=== PATIENT | female | born 2005 | race Caucasian/White ===

== ENCOUNTER 2023-03-08 15:43 | Outpatient (CLI) | payer BC, SELFPAY | END 2023-03-08 15:44 | disposition home or self-care (01) | PROVIDERS: PCP Family Medicine; Visit Provider Family Medicine | DX: Z00.00 Encounter for general adult medical examination without abnormal findings (principal); I10 Essential (primary) hypertension; R53.83 Other fatigue; R03.0 Elevated blood-pressure reading, without diagnosis of hypertension; Z13.6 Encounter for screening for cardiovascular disorders | CPT/HCPCS: 80053; 80061; 84443; 87086; 87186 ==

== ENCOUNTER 2023-03-26 17:25 | Emergency (ER) | payer BC, SELFPAY ==
[2023-03-26] VITALS (7 sets, daily range): BP systolic 110–131; BP diastolic 72–80; PULSE 67–93; RESP 18–20; TEMP 37; O2SAT 97–99; BMI 25.8
--- NOTE | 2023-03-26 18:24 | ED.GENADULT ---
HPI - General Adult General Date Seen: 03/26/23 Chief complaint: Chest Pain Stated complaint: Heart palp. Time Seen by Provider: 03/26/23 18:08 Source: patient and family Mode of arrival: ambulatory Limitations: no limitations History of Present Illness HPI narrative: Patient is a 17-year-old here with dad for evaluation of a number of symptoms which have been present for the past month. She says she has been getting palpitations where she feels like her heart is racing. She says sometimes she checks it an it is going fast and sometimes she checks it and it is not going fast. The fastest she has felt her pulse is about 140. Sometimes it feels irregular and other times it feels regular. She has also experienced shortness of breath, dizziness, headaches, fatigue. She saw primary care a couple of weeks ago and had labs which were normal including a CBC, metabolic panel, TSH. Her blood pressure has been borderline elevated at times in the 130s. Her dad is concerned about this as his blood pressure has always been in the low 100s. He feels that all of this started around the time she had her IUD removed and wonders if this is related. He also is concerned that it might be related to her small intestinal bacterial overgrowth. This has apparently been treated by and mining manager with some supplements and antibiotics. She is not currently taking any supplements however. She does tell me that she previously has been have the energy drink user although she has tapered back. She also drinks quite a bit of caffeine. She does notice that her symptoms are worse when she ingests a lot of energy drinks or caffeine, but they do not go completely away when she discontinues energy drinks. She is physically active, her dad describes her as a weightlifter. She was taking creatine but she has discontinued that. She continues to all of her same activities although she says she gets more fatigued. She does not smoke or drink. Related Data Home Medications Medication Instructions Recorded Confirmed creatine PO 03/08/23 glutamine 500 mg capsule 500 mg PO QDAY 03/08/23 03/08/23 (L-Glutamine) lactobacillus combination no.4 3 3,000 mmu cells PO QDAY 03/08/23 03/08/23 billion cell capsule (Probiotic) Allergies Allergy/AdvReac Type Severity Reaction Status Date / Time No Known Drug Allergies Allergy Verified 03/08/23 15:16 Review of Systems Status of ROS: Reports: 10 or more systems reviewed and unremarkable except as noted in History and below [facility] Medical History Anxiety, generalized ?F41.1 - Generalized anxiety disorder (ICD-10) Narrow nostril Hx of eating disorder ?Z86.59 - Personal history of other mental and behavioral disorders (ICD-10) History of depression ?Z86.59 - Personal history of other mental and behavioral disorders (ICD-10) Surgical History Labial hypertrophy (2019) ?N90.60 - Unspecified hypertrophy of vulva (ICD-10) Family History Father Bipolar disorder Mother Breast cancer, Onset Age: 50 Paternal Grandfather Prostate cancer Paternal Grandmother Stroke, Onset Age: 90 Social History Narrative: Single, 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[employer], no kids Nonsmoker Rare alcohol use no drug use Exercise 6 7 days a week weightlifting/yoga/cardio Smoking Status: Never smoker Do you use any of these nicotine containing products: None Second hand tobacco smoke exposure: No How often do you have a drink containing alcohol: never How often do you have six or more drinks on one occasion: Never AUDIT-C Alcohol total score: 0 Non-prescribed substance use: denies use Little interest or pleasure in doing things: not at all Feeling down, depressed, or hopeless: not at all service: No Exam Narrative: Exam Narrative: Vital signs as noted above. In general, an alert, well-appearing patient. Head: Normocephalic, atraumatic. Eyes: Pupils are equal reactive. Extraocular movements are full. Conjunctivae are normal. ENT: Mucous membranes are moist. Throat is normal. Neck: Supple without lymphadenopathy. Heart: Regular rate and rhythm. No murmur or rub. Lungs: Clear bilaterally. No increased work of breathing, crackles or wheezes. Abdomen: Soft and nontender. No organomegaly. Extremities: Well perfused. Trace edema in bilateral shins. No calf tenderness. Pulses intact. Neurologic: Patient is alert and oriented to person and place. Speech is fluent. Face is symmetric. Moves all extremities equally. Affect: Normal. Skin: Warm and dry. Well perfused. Const: Vital Signs, click to edit/add: Vital Signs - 24 hr 03/26/23 17:57 03/26/23 18:23 03/26/23 20:00 Temperature 98.6 F Pulse Rate 72 Pulse Rate [Pulse Oximeter] 93 Respiratory Rate 20 18 Blood Pressure 115/74 Blood Pressure [Ri ght Upper Arm] 131/80 Pulse Oximetry 99 99 98 Oxygen Delivery Me thod Room Air 03/26/23 20:22 03/26/23 20:30 03/26/23 20:31 Temperature Pulse Rate 78 67 69 Pulse Rate [Pulse Oximeter] Respiratory Rate Blood Pressure 110/72 Blood Pressure [Ri ght Upper Arm] Pulse Oximetry 97 98 99 Oxygen Delivery Me thod 03/26/23 20:44 Temperature 98.6 F Pulse Rate Pulse Rate [Pulse Oximeter] 93 Respiratory Rate 18 Blood Pressure Blood Pressure [Ri ght Upper Arm] 131/80 Pulse Oximetry Oxygen Delivery Me thod Course Course Hospital Course: Plan at this time is to do an EKG and metabolic panel. TSH was checked a couple of weeks ago and was normal. CBC was normal, and in the absence of any bleeding I think this is unlikely to changed. Discussed with dad that workup here is somewhat limited. There are other things that could be considered as an outpatient including Holter monitor or echo, but I cannot accomplish knees out of the emergency department. I do not see anything here in terms of red flags to suggest that there is an acute emergent problem. She continues to have good exercise tolerance without any exercise related syncope or chest pain. Blood pressure here is 130/80, discussed with dad that I certainly think that is worth following but not something that I would recommend starting on an antihypertensive out of the emergency department. EKG shows a normal sinus rhythm, she does have a rightward axis and voltages are a bit large of unknown significance. Metabolic panel is normal. I have recommended that they pursue follow-up with an echo and Holter monitor. I think this will answer their concerns as to whether not any of this is related to anything more significant than anxiety. She has an appointment with Dr. Isa hines in a couple of weeks and this can be arranged as an outpatient. For acute worsening, return to the emergency department. They are comfortable with this plan. Vital Signs Vital signs: Initial Vital Signs Temperature 98.6 F 03/26/23 17:57 Temperature Source Temporal Artery Scan 03/26/23 17:57 Pulse Rate 93 03/26/23 17:57 Pulse Rhythm Regular 03/26/23 17:57 Respiratory Rate 20 03/26/23 17:57 Blood Pressure 131/80 03/26/23 17:57 Blood Pressure Mean 97 03/26/23 17:57 Blood Pressure Position Sitting 03/26/23 17:57 Pulse Oximetry 99 03/26/23 17:57 Oxygen Delivery Method Room Air 03/26/23 17:57 Vital Signs Temperature 98.6 F 03/26/23 17:57 Pulse Rate 93 03/26/23 17:57 Respiratory Rate 20 03/26/23 17:57 Blood Pressure 131/80 03/26/23 17:57 Pulse Oximetry 99 03/26/23 17:57 Oxygen Delivery Method Room Air 03/26/23 17:57 Temperature 98.6 F 03/26/23 20:44 Pulse Rate 93 03/26/23 20:44 Respiratory Rate 18 03/26/23 20:44 Blood Pressure 131/80 03/26/23 20:44 Pulse Oximetry 99 03/26/23 20:31 Oxygen Delivery Method Room Air 03/26/23 17:57 Medical Decision Making Lab Data Labs: Lab Results 03/26/23 Range/Units 18:50 Sodium 141 (135-149) mmol/L Potassium 4.0 (3.6-5.1) mmol/L Chloride 104 (96-114) mmol/L Carbon Dioxide 29 (20-32) mmol/L BUN 14 (5-24) mg/dL Creatinine 0.8 (0.6-1.2) mg/dL Estimated Creat Clear 114.10 Estimated GFR 109 ml/min Glucose 96 (60-115) mg/dL Calcium 9.3 (8.7-10.8) mg/dL Discharge Plan Discharge Clinical Impression: Palpitations Patient Disposition: Home w/ Parent or Adult Condition: Stable Instructions: Heart Palpitations (ED) Additional Instructions: Follow-up with primary care in a couple of weeks as planned. My recommendation would be for Holter monitor and cardiac echo to evaluate for any structural abnormalities or periods of arrhythmia. I would recommend checking blood pressure once a day, recording those numbers and then bring this to your appointment so that you can discuss with primary care. Return at any time for acute worsening or new changes. Prescriptions: No Action Probiotic 3 billion cell capsule 3,000 mmu cells PO QDAY Rx Instructions: administer with a meal L-Glutamine 500 mg capsule 500 mg PO QDAY creatine PO Follow Up/Referrals: Angelina Moss MD [Primary Care Provider] - Stand Alone Forms: [employer] Info Instructions
[2023-03-26 19:08] LABS: Chloride* 104 mmol/L (96-114); Sodium* 141 mmol/L (135-149)
[2023-03-26 19:11] LABS: Creatinine* 0.8 mg/dL (0.6-1.2); Estimated Glomerular Filt Rate 109 ml/min
[2023-03-26 19:12] LABS: Blood Urea Nitrogen* 14 mg/dL (5-24); Calcium* 9.3 mg/dL (8.7-10.8); Carbon Dioxide* 29 mmol/L (20-32); Glucose* 96 mg/dL (60-115)
--- NOTE | 2023-03-26 20:27 | ED.NURSE ---
Report given to MOY Luque.
== END 2023-03-26 20:45 | disposition home or self-care (01) ==
PROVIDERS: Emergency Provider Emergency Medicine; PCP Family Medicine
DX: R00.2 Palpitations (principal)
CPT/HCPCS: 36415; 80048; 93005; 94761; 99284

== ENCOUNTER 2024-02-17 10:01 | Outpatient (CLI) | payer BC, SELFPAY ==
--- NOTE | 2024-02-17 10:15 | CRLHL7_ITS ---
For Patients: As a result of the Century Cures Act, medical imaging exams and procedure reports are released immediately into your electronic medical record. You may view this report before your referring provider. If you have questions, please contact your health care provider. INDICATION: Neck pain. Cervical radiculopathy. TECHNIQUE: Noncontrast sagittal T1, T2, STIR and axial GRE sequences are provided. No comparisons. FINDINGS: The overall stature, alignment and intrinsic marrow signal of the cervical spine is within normal limits. Cervical cord is normal. No suspicious disc bulges or protrusions. No suspicious central canal or foraminal narrowing. IMPRESSION: Unremarkable MRI of the cervical spine. Dictated by Deon Rahman MD @ 02/17/2024 12:21:16 PM (Electronically Signed)
== END 2024-02-17 10:02 | disposition home or self-care (01) ==
PROVIDERS: PCP Family Medicine; Visit Provider Internal Medicine
DX: M54.12 Radiculopathy, cervical region (principal); M54.2 Cervicalgia
CPT/HCPCS: 72141

== ENCOUNTER 2024-03-13 13:47 | Outpatient (CLI) | payer BC, SELFPAY ==
[2024-03-13 14:35] VITALS: BP 133/83; PULSE 101; RESP 16
--- NOTE | 2024-03-13 14:48 | W.PM.STED ---
Stress Test Note Date Date of test: 03/13/24 Providers Referring provider: Jacob Horner Primary care provider: Angelina Moss Stress test physician: Raul Feng Stress Test Note Stress test ordered: Stress Echo Indication for test: Shortness of breath Results discussion: Patient is a very nice 18-year-old female presents here, for above test, after discussion the risks benefits and side effects she would like to proceed, she is also accompanied by her mother. Cardiac stress test medical history form is reviewed pretest EKG shows normal sinus rhythm with a ventricular rate of 89 and a blood pressure 125/77, Q-waves are noted inferiorly, and laterally noted standard Kelvin protocol is employed over a time course of 11 minutes 59 seconds, she had achieved a metabolic equivalent of 12.1 Mets, with a maximum heart rate of 182. This correlates to a heart rate of 107%. There was some mild ST wave depression noted inferiorly, but was reassuring we upsloping. Test is terminated because of fatigue and some mild shortness of breath Impression: Negative electrographic portion of stress echo, conditioning was felt to be good Follow up suggested: Await echo portion, clinical correlation with this will be needed. If symptoms still continue. The echo was read as normal perhaps further workup with Cardiology and consideration of tilt-table testing for POTS syndrome might be considered.
== END 2024-03-13 13:48 | disposition home or self-care (01) ==
LOC: STRESS 13:47
PROVIDERS: PCP Family Medicine; Visit Provider Family Medicine
DX: R06.02 Shortness of breath (principal)
CPT/HCPCS: 93016; 93325; 93351

== ENCOUNTER 2024-04-20 11:51 | Outpatient (CLI) | payer BC, SELFPAY ==
[2024-04-20 16:21] LABS: Bacterial Vaginosis* Negative (Negative); Candida glab/krus NOT DETECTED (No Detected); Candida species NOT DETECTED (No Detected); Trichomonas vaginalis NOT DETECTED (No Detected)
== END 2024-04-20 11:52 | disposition home or self-care (01) ==
LOC: NFLDREF 11:51
PROVIDERS: PCP Family Medicine; Visit Provider Registered Nurse
DX: N89.8 Other specified noninflammatory disorders of vagina (principal); R35.0 Frequency of micturition; B95.2 Enterococcus as the cause of diseases classified elsewhere
CPT/HCPCS: 81513; 87086; 87186; 87481; 87661

== ENCOUNTER 2024-06-12 08:35 | Outpatient (CLI) | payer BC, SELFPAY | END 2024-06-12 08:36 | disposition home or self-care (01) | LOC: NFLDREF 06-13 13:22 | PROVIDERS: PCP Family Medicine; Referring Provider Family Medicine; Visit Provider Registered Nurse | DX: R39.9 Unspecified symptoms and signs involving the genitourinary system (principal) | CPT/HCPCS: 87086; 87186 ==

== ENCOUNTER 2024-09-21 09:36 | Outpatient (CLI) | payer BC, SELFPAY ==
[2024-09-21 12:09] LABS: Bacterial Vaginosis* Negative (Negative); Candida glab/krus NOT DETECTED (No Detected); Candida species NOT DETECTED (No Detected); Trichomonas vaginalis NOT DETECTED (No Detected)
== END 2024-09-21 09:37 | disposition home or self-care (01) ==
PROVIDERS: PCP Family Medicine; Visit Provider Registered Nurse
DX: N89.8 Other specified noninflammatory disorders of vagina (principal); Z11.3 Encounter for screening for infections with a predominantly sexual mode of transmission
CPT/HCPCS: 81513; 87086; 87186; 87481; 87661

== ENCOUNTER 2024-09-27 17:32 | Emergency (ER) | payer BC, SELFPAY ==
[2024-09-27 17:38] VITALS: BP 132/77; PULSE 74; TEMP 36.7; O2SAT 98; BMI 27.4
[2024-09-27 18:14] LABS: Appearance Urine Clear (Clear); Bilirubin Urine Negative (Negative); Blood Urine 2+ (Negative); Color Urine Yellow (Yellow); Glucose Urine Negative (Negative); Ketones Urine Negative (Negative); Leukocyte Esterase Urine Negative (Negative); Nitrite Urine Negative (Negative); Protein Urine Negative (Negative); Specific Gravity Urine <= 1.005 (1.000-1.030); Urobilinogen Urine 0.2 (0.2-1.0); pH Urine 5.5 (5.0-8.5)
[2024-09-27 18:20] LABS: RBC Urine 0-2 (0-2); WBC Urine 0-2 (0-5)
--- NOTE | 2024-09-27 19:37 | CRLHL7_ITS ---
For Patients: As a result of the Century Cures Act, medical imaging exams and procedure reports are released immediately into your electronic medical record. You may view this report before your referring provider. If you have questions, please contact your health care provider. INDICATION: Flank pain and dysuria. Family history of kidney stones. COMPARISON: None. TECHNIQUE: CT of the abdomen and pelvis without intravenous contrast. FINDINGS: Please note that absence of intravenous contrast limits evaluation of soft tissue and vascular structures. Lung bases: No pleural effusion. Liver: Smooth hepatic contour. Gallbladder and biliary tree: Unremarkable noncontrast CT appearance. Spleen: No splenomegaly. Pancreas: Unremarkable noncontrast CT appearance. Adrenal glands: Normal. Kidneys and ureters: No hydroureteronephrosis. No calculus. Bladder: Unremarkable noncontrast CT appearance. Visualized reproductive organs: Unremarkable noncontrast CT appearance. Gastrointestinal tract: No focal abnormally dilated loops of bowel. Moderate to large colonic stool volume. Normal appendix. Peritoneal cavity: No free fluid or free air. Lymph nodes: No enlarged abdominal or pelvic lymph nodes by CT size criteria. Vessels: No abdominal aortic aneurysm. Abdominal and pelvic wall: Normal. Bones: No acute osseous findings. IMPRESSION: 1. No acute noncontrast CT findings in the abdomen or pelvis. Specifically, no urinary tract calculus. 2. Moderate to large colonic stool volume. Please note that all CT scans at this facility use dose modulation, iterative reconstruction, and/or weight-based dosing when appropriate to reduce radiation dose to as low as reasonably achievable. Dictated by Audie Martínez MD @ 09/27/2024 8:33:50 PM (Electronically Signed)
--- NOTE | 2024-09-27 19:38 | ED.GENADULT ---
HPI - General Adult General Chief complaint: Urogenital Problems, Female Stated complaint: UTI Diag-sharp pain in back/side, fever Time Seen by Provider: 09/27/24 19:14 History of Present Illness HPI narrative: This 18-year-old female comes in reporting bilateral flank pain, right greater than left. She has had some recurrent urinary tract infections over the past several months. She is currently taking Macrobid but continues to have some increased frequency and some burning when passing urine. She arrives here with normal vital signs. Related Data Previous Rx's ?Medication ?Instructions ?Recorded nitrofurantoin 100 mg PO BID #10 caps 09/25/24 monohydrate/macrocrystals 100 mg capsule (Macrobid) Allergies Allergy/AdvReac Type Severity Reaction Status Date / Time No Known Drug Allergies Allergy Verified 09/21/24 07:43 Review of Systems Status of ROS: Reports: 10 or more systems reviewed and unremarkable except as noted in History and below Narrative: Constitutional: No fevers, no weight gain or loss. Eyes: No discharge. No vision changes. HENT: No congestion, no sore throat, no ear pain. Cardiovascular: No chest pain, no palpitations. Respiratory: No shortness of breath, no wheezes, no cough. Gastrointestinal: No abdominal pain, no vomiting, no diarrhea. Genitourinary: Dysuria symptoms as described above with flank pain. Musculoskeletal: Normal range of motion. Skin: No rashes, no pruritis. Neurological: No dizziness, weakness, sensory change, speech change. Endo/Heme/Allergies: No bruising or bleeding. No polydipsia. Pysch: no suicidality, no anxiety, no insomnia. All other systems reviewed and are negative. [facility] Medical History UTI (urinary tract infection) ?N39.0 - Urinary tract infection, site not specified (ICD-10) SOB (shortness of breath) ?R06.02 - Shortness of breath (ICD-10) Cervical radiculopathy ?M54.12 - Radiculopathy, cervical region (ICD-10) Small intestinal bacterial overgrowth (SIBO) ?K63.89 - Other specified diseases of intestine (ICD-10) Elevated blood-pressure reading without diagnosis of hypertension ?R03.0 - Elevated blood-pressure reading, without diagnosis of hypertension (ICD-10) Anxiety, generalized ?F41.1 - Generalized anxiety disorder (ICD-10) Narrow nostril Hx of eating disorder ?Z86.59 - Personal history of other mental and behavioral disorders (ICD-10) History of depression ?Z86.59 - Personal history of other mental and behavioral disorders (ICD-10) Surgical History Labial hypertrophy (2019) ?N90.60 - Unspecified hypertrophy of vulva (ICD-10) Family History Father Bipolar disorder Mother Breast cancer, Onset Age: 50 Paternal Grandfather Prostate cancer Paternal Grandmother Stroke, Onset Age: 90 Other Alcohol dependence Social History Narrative: Single, 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 HEENT: Normocephalic, atraumatic. Neck: Normal range of motion. Nontender. Supple. Heart: Regular. No murmurs. Normal rate. Intact distal pulses. Lungs: Clear to auscultation. No chest discomfort. No wheezes, rhonchi, or rales. Abdomen: Normal bowel sounds. Nontender. No rebound tenderness. Genitalia: Deferred. Back: No midline tenderness. Normal range of motion. Bilateral flank pain. Left flank region is reproduced when taking a deep breath. Right flank reproduced with percussion over this area. Extremities: Normal range of motion. No injury. Skin: Intact. No rash. Warm. No erythema or pallor. Neurologic: No altered sensation. No weakness. Alert and oriented. Psychiatric: No suicidality. No anxiety or depression. No insomnia. Nursing notes and vitals signs are reviewed. Const: Vital Signs, click to edit/add: Vital Signs - 24 hr 09/27/24 17:38 09/27/24 19:45 Temperature 98.0 F Pulse Rate [Pulse Oximeter] 74 67 Respiratory Rate 16 Blood Pressure [Ri ght Upper Arm] 132/77 117/74 Pulse Oximetry 98 100 Oxygen Delivery Me thod Room Air Room Air Course Vital Signs Vital signs: Initial Vital Signs Temperature 98.0 F 09/27/24 17:38 Temperature Source Oral 09/27/24 17:38 Pulse Rate 74 09/27/24 17:38 Pulse Rhythm Regular 09/27/24 17:38 Blood Pressure 132/77 09/27/24 17:38 Blood Pressure Mean 95 09/27/24 17:38 Blood Pressure Position Sitting 09/27/24 17:38 Pulse Oximetry 98 09/27/24 17:38 Oxygen Delivery Method Room Air 09/27/24 17:38 Vital Signs Temperature 98.0 F 09/27/24 17:38 Pulse Rate 74 09/27/24 17:38 Blood Pressure 132/77 09/27/24 17:38 Pulse Oximetry 98 09/27/24 17:38 Oxygen Delivery Method Room Air 09/27/24 17:38 Temperature 98.0 F 09/27/24 17:38 Pulse Rate 67 09/27/24 19:45 Respiratory Rate 16 09/27/24 19:45 Blood Pressure 117/74 09/27/24 19:45 Pulse Oximetry 100 09/27/24 19:45 Oxygen Delivery Method Room Air 09/27/24 19:45 Medical Decision Making [facility] Narrative Medical decision making narrative: This patient comes in reporting dysuria symptoms despite taking Macrobid for the past fiber 6 days. She states that she has had several urinary tract infections over the past several months. I did look back at her urinalysis results here and saw that the cultures grown for each 1 of them had just [phone] colonies of various organisms. This is really not sufficient to justify urinary tract infection in those previous cases. Her urinalysis today also looks normal. I did do a CT scan of her abdomen and pelvis and this returns with no acute findings except it is noted that she has moderate to large amount of stool in her colon. The patient states that she has taken Pyridium in the past and this did not help her. She seems to have burning with voiding urine and sometimes increased frequency. Her symptoms do not appear to be related to infection from the results that we have available. Additionally she has taken antibiotic each time without much change of her symptoms. I did recommend that she follows up with obstetrics [facility]necology [facility] clinic for further evaluation and treatment. She did receive the [employer] prescription for Toradol. Lab Data Labs: Lab Results 09/27/24 Range/Units 17:44 Urine Color Yellow (Yellow) Urine Appearance Clear (Clear) Urine pH 5.5 (5.0-8.5) Ur Specific [place] <= 1.005 (1.000-1.030) Urine Protein Negative (Negative) Urine Glucose (UA) Negative (Negative) Urine Ketones Negative (Negative) Urine Blood 2+ A (Negative) Urine Nitrite Negative (Negative) Urine Bilirubin Negative (Negative) Urine Urobilinogen 0.2 (0.2-1.0) Ur Leukocyte Esterase Negative (Negative) Urine RBC 0-2 (0-2) Urine WBC 0-2 (0-5) Ur Squamous Epith Cells None (None-Few) Urine Bacteria None (None) Imaging Data CT scan - abdomen: Radiologist's impression: 1. No acute noncontrast CT findings in the abdomen or pelvis. Specifically, no urinary tract calculus. 2. Moderate to large colonic stool volume. Discharge Plan Discharge Clinical Impression: Dysuria Patient Disposition: Home, Self-Care Condition: Stable Additional Instructions: Use Toradol as needed and directed for symptomatic relief. Follow-up with OBGYN clinic for ongoing diagnosis and treatment. Return if worsening. Prescriptions: No Action nitrofurantoin monohyd/m-cryst [Macrobid] 100 mg capsule 100 mg PO BID Qty: 10 0RF Rx Instructions: must administer with a meal/food Follow Up/Referrals: Angelina Moss MD [Primary Care Provider] - Stand Alone Forms: [employer] Info Instructions
[2024-09-27 19:45] VITALS: BP 117/74; PULSE 67; RESP 16; O2SAT 100
== END 2024-09-27 21:33 | disposition home or self-care (01) ==
LOC: ED 21:05
PROVIDERS: Emergency Provider Emergency Medicine Emergency Medical Services; PCP Internal Medicine
DX: R30.0 Dysuria (principal)
CPT/HCPCS: 74176; 81001; 99284

== ENCOUNTER 2025-09-03 13:16 | Outpatient (CLI) | payer BC, SELFPAY | END 2025-09-03 13:17 | disposition home or self-care (01) | LOC: NFLDREF 13:17 | PROVIDERS: PCP Internal Medicine; Visit Provider Registered Nurse | DX: R35.0 Frequency of micturition (principal) | CPT/HCPCS: 87086 ==